=== PATIENT | male | born 1995 | race Caucasian/White ===

== ENCOUNTER 2024-02-29 20:44 | Emergency (ER) | payer SELFPAY ==
[2024-02-29 20:45] VITALS: BP 150/102
[2024-02-29 21:02] VITALS: BMI 34.2
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
[2024-02-29] MEDS: MOTRIN 800 MG PO (22:04)
[2024-02-29] MEDS: TYLENOL 650 MG PO (22:05)
== END 2024-02-29 22:23 | disposition home or self-care (01) ==
LOC: EMR 20:44
PROVIDERS: EMERGENCY PHYSICIAN Emergency Medicine; FAMILY PHYSICIAN Family Medicine
DX: S43.401A Unspecified sprain of right shoulder joint, initial encounter (principal); S92.411A Displaced fracture of proximal phalanx of right great toe, initial encounter for closed fracture; V23.49XA Other motorcycle driver injured in collision with car, pick-up truck or van in traffic accident, initial encounter
CPT/HCPCS: 99283; 73030; 73660